=== PATIENT | male | born 1990 | race Caucasian/White ===

== ENCOUNTER → 2017-02-02 | Outpatient (CLI) | payer BC | LOC: M OUTALCOH 07:59 | PROVIDERS: ATTEND Psychiatry & Neurology Psychiatry | DX: Z03.89 Encounter for observation for other suspected diseases and conditions ruled out (principal) ==

== ENCOUNTER → 2017-03-25 | Outpatient (RCR) | payer BC | LOC: M OUTALCOH 02-25 10:00 | PROVIDERS: ATTEND Psychiatry & Neurology Psychiatry | DX: F10.10 Alcohol abuse, uncomplicated (principal) ==

== ENCOUNTER 2017-04-01 10:00 | Outpatient (RCR) | payer BC | END 2017-04-25 | LOC: M OUTALCOH 04-08 10:00 | DX: F10.10 Alcohol abuse, uncomplicated (principal) ==

== ENCOUNTER 2017-04-29 10:27 | Outpatient (RCR) | payer BC | END 2017-05-26 | LOC: M OUTALCOH 10:27 | DX: F10.10 Alcohol abuse, uncomplicated (principal) ==

== ENCOUNTER → 2017-05-06 | Outpatient (REF) | payer BC | LOC: M LAB REF 12:38 | DX: L72.3 Sebaceous cyst (principal) | CPT/HCPCS: 88304 ==

== ENCOUNTER → 2018-12-06 | Outpatient (CLI) | payer SELFPAY | LOC: M OUTALCOH 07:59 | PROVIDERS: ATTEND Psychiatry & Neurology Psychiatry | DX: Z03.89 Encounter for observation for other suspected diseases and conditions ruled out (principal) ==

== ENCOUNTER 2018-12-14 10:46 | Outpatient (RCR) | payer SELFPAY | END 2018-12-24 | LOC: M OUTALCOH 10:46 | PROVIDERS: ATTEND Psychiatry & Neurology Psychiatry | DX: Z03.89 Encounter for observation for other suspected diseases and conditions ruled out (principal) ==

== ENCOUNTER 2019-05-15 08:37 | Emergency (ER) | payer OTHER ==
[~2019-05-15] VITALS: Ht 185.4 cm; Wt 72.1 kg
[2019-05-15 08:37] VITALS: BP 127/70
== END 2019-05-15 09:35 | disposition home or self-care (01) ==
LOC: M ED 08:37
DX: Z48.02 Encounter for removal of sutures (principal)

== ENCOUNTER → 2023-11-08 | Outpatient (CLI) | payer OTHER | LOC: M RAD 07:02 | PROVIDERS: ATTEND Registered Nurse | DX: J32.9 Chronic sinusitis, unspecified (principal) ==